=== PATIENT | male | born 1995 | race Caucasian/White ===

== ENCOUNTER 2017-02-19 16:32 | Emergency (ER) | payer OTHER ==
[2017-02-19 16:44] VITALS: BP 127/78; PULSE 90; RESP 18; TEMP 98.4; O2SAT 94
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
== END 2017-02-19 17:50 | disposition home or self-care (01) ==
DX: S09.90XA Unspecified injury of head, initial encounter (principal); V13.4XXA Pedal cycle driver injured in collision with car, pick-up truck or van in traffic accident, initial encounter; Y99.8 Other external cause status; Y93.89 Activity, other specified